=== PATIENT | male | born 1930 | race Caucasian/White ===

== ENCOUNTER → 2016-02-16 | Outpatient (CLI) | payer MEDICARE, OTHER | LOC: GMAM 12:01 | PROVIDERS: ATTEND Family Medicine | DX: N18.1 Chronic kidney disease, stage 1 (principal) ==

== ENCOUNTER → 2016-05-17 | Outpatient (CLI) | payer MEDICARE, OTHER | END | disposition home or self-care (01) | LOC: GMAM 11:26 | PROVIDERS: ATTEND Family Medicine | DX: N18.3 Chronic kidney disease, stage 3 (moderate) (principal) ==

== ENCOUNTER → 2016-06-14 | Outpatient (CLI) | payer MEDICARE, OTHER | END | disposition home or self-care (01) | LOC: GMAM 14:03 | PROVIDERS: ATTEND Family Medicine | DX: R05 Cough (principal) ==

== ENCOUNTER → 2016-07-19 | Outpatient (CLI) | payer MEDICARE, OTHER | END | disposition home or self-care (01) | LOC: GMAM 11:44 | PROVIDERS: ATTEND Family Medicine | DX: N18.3 Chronic kidney disease, stage 3 (moderate) (principal) ==

== ENCOUNTER → 2016-08-03 | Outpatient (CLI) | payer MEDICARE, OTHER | LOC: GMAM 14:28 | PROVIDERS: ATTEND Family Medicine | DX: M10.9 Gout, unspecified (principal) ==

== ENCOUNTER → 2016-08-19 | Outpatient (CLI) | payer MEDICARE, OTHER | LOC: LAB.O 11:06 | PROVIDERS: ATTEND Family Medicine | DX: I48.91 Unspecified atrial fibrillation (principal) ==

== ENCOUNTER → 2016-08-25 | Outpatient (CLI) | payer MEDICARE, OTHER | LOC: GMA 13:09 | PROVIDERS: ATTEND Nurse Practitioner Family | DX: R06.02 Shortness of breath (principal) ==

== ENCOUNTER 2016-10-02 20:59 | Emergency (ER) | payer MEDICARE, OTHER ==
[2016-10-02 21:13] VITALS: TEMP 98.2; O2SAT 96
[2016-10-02] MEDS ORDERED: LIDOCAINE 1% W/ EPINEPHRINE 20 ML VIAL INJ ONE ×2 (21:28→22:48)
--- NOTE | 2016-10-02 22:03 | ED.PDOC ---
History of Present Illness - General Chief Complaint: Laceration Stated Complaint: head laceration Time Seen by Provider: 10/02/16 21:54 Source: patient, family Exam Limitations: no limitations - History of Present Illness Initial Comments: Praful Lujan 85 y/o male stated his left knee gave way lost his balance and head hitting the drawer.No LOC ,remembers incident but noted bloodoozing back of his head brought by family here at [facility] ER.He is on custodial anticoagulation after heart valve replacement and INR recently was elevated today was given vit.K injection by his primary md.Had also skin laceration left hand. Occurred: this evening Severity: moderate Head Injury Location: occipital Method of Injury: fell Loss of Consciousness: no loss of consciousness Associated Symptoms: denies symptoms, other - scalp bleeding Allergies/Adverse Reactions: Allergies Celecoxib [From Celebrex] Allergy (Severe, Verified 10/02/16 21:13) Dextromethorphan [From Mucinex DM] Allergy (Severe, Verified 10/02/16 21:13) Guaifenesin [From Mucinex DM] Allergy (Severe, Verified 10/02/16 21:13) Ibuprofen [From Advil] Allergy (Severe, Verified 10/02/16 21:13) NSAIDs Allergy (Severe, Verified 10/02/16 21:13) PATIENT STATES ALL PAIN MEDS Penicillin G Allergy (Severe, Verified 10/02/16 21:13) Yellow Dye [From Mucinex DM] Allergy (Severe, Verified 10/02/16 21:13) Aspirin Allergy (Verified 10/02/16 21:13) Home Medications: Ambulatory Orders Amlodipine Besylate [Norvasc] 5 mg PO DAILY 05/16/12 Benazepril HCl 20 mg PO DAILY 05/16/12 Ezetimibe [Zetia] 10 mg PO DAILY 05/16/12 Metoprolol Succinate [Toprol Xl] 25 mg PO DAILY 05/16/12 Cefprozil Suspension [Cefzil] 500 mg PO BID #0 bttl 05/20/12 Furosemide [Lasix] 40 mg PO DAILY #0 tab 05/20/12 Levalbuterol HCl [Xopenex] 1.25 mg IN QID #0 ml 05/20/12 Nitroglycerin Patch 0.2 mg/Hr [Nitro-Dur] 0.2 mg TD DAILY #0 patch 05/20/12 PredniSONE (ER DISPENSE) 10 mg PO BID #0 tab 05/20/12 Review of Systems - Review of Systems Constitutional: States: no symptoms reported EENTM: States: no symptoms reported Respiratory: States: no symptoms reported Cardiology: States: no symptoms reported Gastrointestinal/Abdominal: States: no symptoms reported Genitourinary: States: no symptoms reported Skin: States: see HPI, other - laceration scalp Neurological: States: no symptoms reported Past Medical History (General) - Patient Medical History Hx Seizures: No Hx Stroke: No Hx Dementia: No Hx Asthma: No Hx of COPD: No Hx Cardiac Disorders: Yes Hx Congestive Heart Failure: Yes Hx Pacemaker: No Hx Hypertension: Yes Hx Thyroid Disease: No Hx Diabetes: No Hx Gastroesophageal Reflux: No Hx Renal Disease: No Hx Cancer: No Hx of HIV: No Hx Hepatitis C: No Hx MRSA: No Surgical History: appendectomy, other - heart valve replacement - Vaccination History Hx Tetanus, Diphtheria Vaccination: Yes Hx Influenza Vaccination: Yes Hx Pneumococcal Vaccination: Yes Immunizations Up to Date: Yes - Social History Hx Tobacco Use: No Hx Chewing Tobacco Use: No Hx Alcohol Use: No Hx Substance Use: No Hx Substance Use Treatment: No Hx Depression: No Feels Threatened In Home Enviroment: No Feels Threatened In a Relationship: No Hx Physical Abuse: No Hx Emotional Abuse: No Hx Suspected Abuse: No - Activities of Daily Living Patient Lives Alone: No - Grooming Ability: Independent Eating (Feeding) Ability: Independent Toileting Ability: Standby Assistance - Female History Patient : No Family Medical History - Family History Mother Family History: Unknown Living Status: Physical Exam - Physical Exam General Appearance: Alert, No apparent distress Head Injury: other - 3 cm scalp laceration parieto occipital area Eye Exam: bilateral normal ENT Exam: hearing grossly normal, no evidence of ENT injury, no dental injury Neck Exam: non-tender, full range of motion Cardiovascular/Respiratory: regular rate, rhythm, normal peripheral pulses, no respiratory distress Gastrointestinal/Abdominal: non tender, soft, no organomegaly Back Exam: no vertebral tenderness Extremity: non-tender, no calf tenderness 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, 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 Exam: normal hearing, normal speech Coordination/Gait: normal gait Motor/Sensory: no motor deficit, no sensory deficit - [place]enton Coma Score Best Eye Response (Denton): (4) open spontaneously Best Verbal Response (Verito): (5) oriented Best Motor Response ([place]enton): (6) obeys commands [place] Total: 15 Progress - Progress Progress: 10/02/16 22:07 Vital Signs - 8 hr 10/02/16 10/02/16 21:00 21:57 Temperature 98.2 F Pulse Rate [ 61 58 L monitor] Respiratory 22 Rate Blood Pressure 188/101 178/91 [Right Arm] O2 Sat by Pulse 96 Oximetry - Results/Orders Results/Orders: Talked to about tiny foreign body skin that nothing to worry about it it come out to the surface or be enveloped by fibrous tissue - EKG/XRAY/CT XRAY: hand - left no fracture foreign body CT Ordered: Yes - head-no intracranial abnormality Procedures - Laceration/Wound Repair Head Wound Length (cm): 3 - scalp laceration parieto -occiput area Wound's Depth, Shape: linear Wound Explored: clean Betadine Prep?: Yes Anesthesia: Lidocaine w/ Epi Volume Anesthetic (cc's): 8 Wound Repaired With: sutures Suture Size/Type: 3:0, prolene Number of Sutures: 4 Layer Closure?: No Sterile Dressing Applied?: Yes Left Hand Wound Length (cm): 3 - skin tear Wound's Depth, Shape: superficial Wound Explored: no foreign body removed Betadine Prep?: Yes Wound Repaired With: steri-strips Sterile Dressing Applied?: Yes Departure - Departure Clinical Impression: nursing home (current) use of anticoagulants, Skin tear Fall at home Qualifiers: Encounter type: initial encounter Qualified Code(s): W19.XXXA - Unspecified fall, initial encounter Laceration of occipital region of scalp Qualifiers: Encounter type: initial encounter Qualified Code(s): S01.01XA - Laceration without foreign body of scalp, initial encounter Time of Disposition: 22:39 Disposition: Discharge to Home or Self Care Condition: Fair Departure Forms: ED Discharge - Pt. Copy, Patient Portal Self Enrollment Instructions: DI for Laceration Repair of the Scalp Referrals: Song Lobo MD [Primary Care Provider] - 1-2 Weeks Home Medications: Ambulatory Orders Amlodipine Besylate [Norvasc] 5 mg PO DAILY 05/16/12 Benazepril HCl 20 mg PO DAILY 05/16/12 Ezetimibe [Zetia] 10 mg PO DAILY 05/16/12 Metoprolol Succinate [Toprol Xl] 25 mg PO DAILY 05/16/12 Cefprozil Suspension [Cefzil] 500 mg PO BID #0 bttl 05/20/12 Furosemide [Lasix] 40 mg PO DAILY #0 tab 05/20/12 Levalbuterol HCl [Xopenex] 1.25 mg IN QID #0 ml 05/20/12 Nitroglycerin Patch 0.2 mg/Hr [Nitro-Dur] 0.2 mg TD DAILY #0 patch 05/20/12 PredniSONE (ER DISPENSE) 10 mg PO BID #0 tab 05/20/12 Additional Instructions: REMOVAL OF SUTURES 10/08/2016 [facility] ER;RETURN TO EMERGENCY ROOM NEEDED
--- NOTE | 2016-10-02 22:11 | CT ---
PROCEDURE: Head HISTORY: head lac, on coumadin Indication: Same as above Comparison: 10/09/2013 Technique: CT of the head was done without intravenous contrast was done in the axial plane only This exam was performed according to our departmental dose-optimization program, which includes automated exposure control, adjustment of the mA and/or KV according to the patient's size and/or use of iterative reconstruction technique. FINDINGS: There is no intracranial hemorrhage, midline shift mass effect or acute focal infarct. There is prominence of the sylvian fissures and the cortical sulci reflecting age related volume loss. There is periventricular and deep white matter low attenuation, most likely related to small vessel white matter ischemic disease. Intracranial vascular calcifications are seen. If clinical concern exists regarding an acute ischemic/vascular pathology being responsible for patient's symptomatology, an MRI of the brain is more sensitive than the current study, in ruling out such a possibility. There is good rubio/white matter differentiation. The ventricular system is normal. The mastoid air cells are unremarkable . The paranasal sinuses are unremarkable . There is no visualization of acute fractures involving the calvarium or the skull base. IMPRESSION: There is no acute intracranial abnormality. Age related and chronic involutional changes are seen. Electronically signed by: Esvin Cooper MD 10/02/2016 10:10 PM CDT Workstation: [id number]
[2016-10-02 23:14] VITALS: BP 174/89
== END 2016-10-02 23:14 | disposition home or self-care (01) ==
LOC: ER 20:59
DX: S01.01XA Laceration without foreign body of scalp, initial encounter (principal); S61.412A Laceration without foreign body of left hand, initial encounter; Z95.2 Presence of prosthetic heart valve; Z88.0 Allergy status to penicillin; Z88.8 Allergy status to other drugs, medicaments and biological substances; Z79.01 Long term (current) use of anticoagulants; W19.XXXA Unspecified fall, initial encounter; W22.03XA Walked into furniture, initial encounter; Y92.9 Unspecified place or not applicable; I11.0 Hypertensive heart disease with heart failure; I50.9 Heart failure, unspecified

== ENCOUNTER 2016-12-22 12:20 | Emergency (ER) | payer MEDICARE, OTHER ==
[2016-12-22 12:37] VITALS: TEMP 97.8
--- NOTE | 2016-12-22 13:18 | ED.PDOC ---
History of Present Illness - General Chief Complaint: Trauma Stated Complaint: s/p fall Time Seen by Provider: 12/22/16 12:41 Source: patient, RN notes reviewed, Vital Signs reviewed, family - Exam Limitations: no limitations - History of Present Illness Initial Comments: Patient present to the ER after falling backwards in his walker-chair leaving the doctors office. He is having pain @ the back of his head and neck. Reports some mild back pain but otherwise denies injury. reports that neurologically he is acting like himself. He is on Warfarin daily. INR done today at PCP clinic just prior to arrival @ ER was 2.8. Timing/Duration: momentarily Severity: mild Improving Factors: rest Worsening Factors: movement Associated Symptoms: headaches, other - No LOC Allergies/Adverse Reactions: Allergies Celecoxib [From Celebrex] Allergy (Severe, Verified 10/02/16 21:13) Dextromethorphan [From Mucinex DM] Allergy (Severe, Verified 10/02/16 21:13) Guaifenesin [From Mucinex DM] Allergy (Severe, Verified 10/02/16 21:13) Ibuprofen [From Advil] Allergy (Severe, Verified 10/02/16 21:13) NSAIDs Allergy (Severe, Verified 10/02/16 21:13) PATIENT STATES ALL PAIN MEDS Penicillin G Allergy (Severe, Verified 10/02/16 21:13) Yellow Dye [From Mucinex DM] Allergy (Severe, Verified 10/02/16 21:13) Aspirin Allergy (Verified 10/02/16 21:13) Home Medications: Ambulatory Orders Amlodipine Besylate [Norvasc] 5 mg PO DAILY 05/16/12 Benazepril HCl 20 mg PO DAILY 05/16/12 Ezetimibe [Zetia] 10 mg PO DAILY 05/16/12 Metoprolol Succinate [Toprol Xl] 25 mg PO DAILY 05/16/12 Cefprozil Suspension [Cefzil] 500 mg PO BID #0 bttl 05/20/12 Furosemide [Lasix] 40 mg PO DAILY #0 tab 05/20/12 Levalbuterol HCl [Xopenex] 1.25 mg IN QID #0 ml 05/20/12 Nitroglycerin Patch 0.2 mg/Hr [Nitro-Dur] 0.2 mg TD DAILY #0 patch 05/20/12 PredniSONE (ER DISPENSE) 10 mg PO BID #0 tab 05/20/12 Warfarin Sodium [Coumadin] 6 mg PO 10/02/16 Review of Systems - Review of Systems Constitutional: States: no symptoms reported EENTM: States: see HPI. Denies: blurred vision, double vision, ear pain, throat pain, mouth pain, other - Hit back of head, bleeding Respiratory: States: no symptoms reported Cardiology: States: no symptoms reported Gastrointestinal/Abdominal: States: no symptoms reported Musculoskeletal: States: back pain, neck pain Skin: States: see HPI Neurological: States: headache. Denies: numbness, paresthesia, tingling, weakness All other Systems: No Change from Baseline Past Medical History (General) - Patient Medical History Hx Seizures: No Hx Stroke: No Hx Dementia: No Hx Asthma: No Hx of COPD: Yes Hx Cardiac Disorders: Yes - Atrial fib Hx Congestive Heart Failure: Yes Hx Pacemaker: No Hx Hypertension: Yes Hx Thyroid Disease: No Hx Diabetes: No Hx Gastroesophageal Reflux: No Hx Renal Disease: No Hx Cancer: No Hx of HIV: No Hx Hepatitis C: No Hx MRSA: No Surgical History: appendectomy, coronary bypass surgery - Vaccination History Hx Tetanus, Diphtheria Vaccination: Yes Hx Influenza Vaccination: Yes Hx Pneumococcal Vaccination: Yes - Social History Hx Tobacco Use: Yes Hx Chewing Tobacco Use: No Hx Alcohol Use: No Hx Substance Use: No Hx Substance Use Treatment: No Hx Depression: No Hx Physical Abuse: No Hx Emotional Abuse: No Hx Suspected Abuse: No - Female History Patient : No Family Medical History - Family History Mother Family History: Unknown Living Status: Physical Exam - Physical Exam General Appearance: Alert, Comfortable, No apparent distress, Well Developed, Well Groomed, Well Hydrated, Well Nourished Eye Exam: bilateral normal Ears, Nose, Throat: hearing grossly normal, normal ENT inspection, normal pharynx Neck: supple, normal inspection, tender midline - mild Respiratory: chest non-tender, no respiratory distress, no accessory muscle use Gastrointestinal/Abdominal: non tender, soft, no organomegaly, no pulsatile mass Back Exam: normal inspection, no vertebral tenderness Extremity: normal range of motion, non-tender, normal inspection 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, no motor/sensory deficits, alert, normal mood/affect, oriented x 3 Skin Exam: normal color, warm/dry, other - Abrasion, no active bleeding on back of head Comments: Vital Signs 12/22/16 12:32 Temperature 97.8 F Pulse Rate [ 55 L Left Brachial] Respiratory 20 Rate Blood Pressure 166/95 [Left Arm] O2 Sat by Pulse 94 L Oximetry Progress - EKG/XRAY/CT CT Ordered: Yes - Head/C-spine: no acute intracranial abnormalities, fracture per Rad Departure - Departure Clinical Impression: Fall on same level as cause of accidental injury, knockout man (current) use of anticoagulants Contusion of scalp Qualifiers: Encounter type: initial encounter Qualified Code(s): S00.03XA - Contusion of scalp, initial encounter Acute cervical myofascial strain Qualifiers: Encounter type: initial encounter Qualified Code(s): S16.1XXA - Strain of muscle, fascia and tendon at neck level, initial encounter Time of Disposition: 13:47 Disposition: Discharge to Home or Self Care Condition: Good Departure Forms: ED Discharge - Pt. Copy, Patient Portal Self Enrollment Instructions: DI for Contusion, DI for Cervical Muscle Strain Diet: resume usual diet Activity: increase activity as tolerated Referrals: Song Lobo MD [Primary Care Provider] - 1-2 Weeks Home Medications: Ambulatory Orders Amlodipine Besylate [Norvasc] 5 mg PO DAILY 05/16/12 Benazepril HCl 20 mg PO DAILY 05/16/12 Ezetimibe [Zetia] 10 mg PO DAILY 05/16/12 Metoprolol Succinate [Toprol Xl] 25 mg PO DAILY 05/16/12 Cefprozil Suspension [Cefzil] 500 mg PO BID #0 bttl 05/20/12 Furosemide [Lasix] 40 mg PO DAILY #0 tab 05/20/12 Levalbuterol HCl [Xopenex] 1.25 mg IN QID #0 ml 05/20/12 Nitroglycerin Patch 0.2 mg/Hr [Nitro-Dur] 0.2 mg TD DAILY #0 patch 05/20/12 PredniSONE (ER DISPENSE) 10 mg PO BID #0 tab 05/20/12 Warfarin Sodium [Coumadin] 6 mg PO 10/02/16
[2016-12-22] MEDS ORDERED: CHLORHEXIDINE GLUCONATE 4 % 15 ML UD TOP ONE (13:26)
--- NOTE | 2016-12-22 13:35 | CT ---
EXAM DESCRIPTION: Head CLINICAL HISTORY: fell, hit back of head, on Warfarin COMPARISON: September 24, 2016 TECHNIQUE: Noncontrast transaxial CT images of the head are obtained from base to vertex. This exam was performed according to our departmental dose-optimization program, which includes automated exposure control, adjustment of the mA and/or kV according to patient size and/or use of iterative reconstruction technique. FINDINGS: The midline structures are not displaced. Sulci are age-appropriate. There are areas of decreased attenuation in the periventricular white matter and the white matter of the centrum semiovale. There is no evidence of mass, mass-effect, hydrocephalus, or acute intracranial hemorrhage. No abnormal extra axial fluid collection is seen. Moderate calcifications of the intracranial carotid arteries are seen. Calcifications of the arterial vasculature of the scalp is also seen. Stable small calcification in the right mid cerebellum. Bone windows show no evidence of depressed skull fracture. The visualized paranasal sinuses are unremarkable. Small amount of fluid in the left inferior mastoid air cells are again seen. IMPRESSION: 1. Age-appropriate atrophy with evidence of old small vessel ischemic type changes seen. No interval change. 2. No acute abnormality is seen on noncontrast CT of the head. Electronically signed by: Nilay Chambers MD 12/22/2016 1:34 PM [employer]GER
--- NOTE | 2016-12-22 13:39 | CT ---
EXAM DESCRIPTION: CT Cervical Spine CLINICAL HISTORY: pain Pain after fall COMPARISON: None available. TECHNIQUE: Axial noncontast CT of the cervical spine with coronal and sagittal reformats. This exam was performed according to our departmental dose-optimization program, which includes automated exposure control, adjustment of the mA and/or kV according to patient size and/or use of iterative reconstruction technique. FINDINGS: Cervical vertebral bodies show normal height. Mild reversal the normal cervical lordosis at C3-4 is likely related to degenerative or positional changes. No CT evidence of acute fracture or post traumatic positional abnormality of the cervical spine is seen. There is severe disc space narrowing from C4 through C7 with moderate disc space narrowing C2-C4. Multilevel facet arthropathy is seen. There is evidence of at least left and possibly right C2-3 facet arthrodesis. There is at least mild spinal canal stenosis from C4 through C7 with multilevel bony foraminal encroachment from C3 through T1. The C1-2 relationship is maintained. Moderate carotid artery calcifications are seen. Calcified nodule in the left lung apex measuring 1.5 cm is seen. IMPRESSION: No CT evidence of acute fracture or post traumatic positional abnormality of the cervical spine is seen. Moderate to severe spondylitic changes and mild facet arthropathy of the cervical spine is seen. Electronically signed by: Nilay Chambers MD 12/22/2016 1:38 PM DANCE THERAPIST
[2016-12-22 13:59] VITALS: BP 166/81; O2SAT 93
== END 2016-12-22 13:59 | disposition home or self-care (01) ==
LOC: ER 12:20
DX: S00.03XA Contusion of scalp, initial encounter (principal); S16.1XXA Strain of muscle, fascia and tendon at neck level, initial encounter; I11.0 Hypertensive heart disease with heart failure; I50.9 Heart failure, unspecified; I48.91 Unspecified atrial fibrillation; J44.9 Chronic obstructive pulmonary disease, unspecified; Z87.891 Personal history of nicotine dependence; Z79.4 Long term (current) use of insulin; Z79.899 Other long term (current) drug therapy; Z88.0 Allergy status to penicillin; Z88.8 Allergy status to other drugs, medicaments and biological substances; W01.0XXA Fall on same level from slipping, tripping and stumbling without subsequent striking against object, initial encounter; Y92.531 Health care provider office as the place of occurrence of the external cause

== ENCOUNTER → 2017-01-03 | Outpatient (CLI) | payer MEDICARE, OTHER | LOC: GMAM 14:13 | PROVIDERS: ATTEND Family Medicine | DX: R31.21 Asymptomatic microscopic hematuria (principal); M54.5 Low back pain; Z79.01 Long term (current) use of anticoagulants ==

== ENCOUNTER → 2017-01-05 | Outpatient (CLI) | payer MEDICARE, OTHER ==
--- NOTE | 2017-01-06 22:36 | CT ---
EXAM DESCRIPTION: Abdoment/Pelvis w/o Contrast CLINICAL HISTORY: FLANK PAIN COMPARISON: None Available. TECHNIQUE: Contiguous axial images of the abdomen and pelvis were obtained followed by reconstruction images. This exam was performed according to our departmental dose-optimization program, which includes automated exposure control, adjustment of the mA and/or kV according to patient size and/or use of iterative reconstruction technique. FINDINGS: Exophytic lesions of the kidneys could be cysts. Detail is limited without contrast. The heart is mildly enlarged. There is a small left pleural effusion. There is colonic diverticulosis. The aorta is enlarged at 36 mm diameter. The liver, spleen, pancreas and kidneys are within normal limits. There is no hydronephrosis or renal stones. The gallbladder is unremarkable by CT criteria. Adrenal glands are within normal limits. . There is no free fluid in the abdomen or pelvis. There is no bowel obstruction. There is no stranding of the mesenteric fat to suggest an inflammatory response. IMPRESSION: Abdominal aortic aneurysm. Follow-up is recommended every 12 months. No acute abnormality. Electronically signed by: Sanju Becker 01/06/2017 10:34 PM [facility]
--- NOTE | 2017-01-06 22:42 | CT ---
EXAM DESCRIPTION: Lumbar Spine CLINICAL HISTORY: 86 years Male LOWER BACK PAIN COMPARISON: None. TECHNIQUE: Contiguous axial CT images obtained through the lumbar spine without IV contrast. Reformatted images obtained. This exam was performed according to our department optimization program which includes automated exposure control, adjustment of the mA and/or kv according to patient size and/or use of iterative reconstruction technique. FINDINGS: There is moderate indentation of the superior endplate of L1 consistent with acute compression fracture.There are fractures through syndesmophytes at the superior and inferior left lateral aspect of the L2 vertebral body as well. There is rightward subluxation of L3 on L4. There are multiple moderate bilateral lateral disc osteophyte complexes. Abdominal aortic aneurysm measures 36 mm. Follow-up is recommended every 12 months. There are bony degenerative changes. There is severe loss of height of the L2-3, L3-4, and L4-5 discs. No spondylolysis. There is grade 1 retrolisthesis of L3 on L4 and of L2 on L3. There are moderate anterior disc osteophyte complexes at multiple levels. No definite additional acute abnormality. IMPRESSION: Acute fractures of L2. Abdominal aortic aneurysm. Follow-up is recommended every 12 months. Electronically signed by: Sanju Becker 01/06/2017 10:41 PM ECHO VASCULAR TECHNOLOGIST
== END | disposition home or self-care (01) ==
LOC: CT 10:32
PROVIDERS: ATTEND Family Medicine
DX: Z79.01 Long term (current) use of anticoagulants (principal); M54.5 Low back pain

== ENCOUNTER → 2017-01-17 | Outpatient (CLI) | payer MEDICARE, OTHER | END | disposition home or self-care (01) | LOC: GMAM 12:08 | PROVIDERS: ATTEND Family Medicine | DX: N18.1 Chronic kidney disease, stage 1 (principal); Z12.5 Encounter for screening for malignant neoplasm of prostate | CPT/HCPCS: 83735; 83970; 84100; 84550; G0103 ==

== ENCOUNTER → 2017-03-14 | Outpatient (CLI) | payer MEDICARE, OTHER | LOC: GMAM 17:30 | PROVIDERS: ATTEND Family Medicine | DX: R53.81 Other malaise (principal) ==

== ENCOUNTER → 2017-03-16 | Outpatient (CLI) | payer MEDICARE, OTHER | LOC: RESP 11:37 | PROVIDERS: ATTEND Nuclear Medicine Nuclear Cardiology | DX: R00.1 Bradycardia, unspecified (principal) ==

== ENCOUNTER 2017-03-23 09:00 | Emergency (ER) | payer MEDICARE, OTHER ==
[2017-03-23 09:05] VITALS: TEMP 99.4
--- NOTE | 2017-03-23 10:15 | RAD ---
EXAM DESCRIPTION: Chest,1 View CLINICAL HISTORY: SOB COMPARISON: 21 March 2017 TECHNIQUE: AP portable chest FINDINGS: The patient is poststernotomy. Cardiomegaly is evident. Bibasilar interstitial lung disease is noted. Calcified lymph nodes are observed in the right axilla. IMPRESSION: Cardiomegaly is observed more pronounced than seen on the previous exam. Bibasilar interstitial lung disease is noted. Electronically signed by: Rex José MD 03/23/2017 10:14 AM [facility]
--- NOTE | 2017-03-23 11:06 | ED.PDOC ---
History of Present Illness - General Chief Complaint: Respiratory Problem Stated Complaint: Lethargic, low O2 sats Time Seen by Provider: 03/23/17 09:19 Source: patient, family Exam Limitations: no limitations Additional Information: THIS PATIENT COMES TO THE ED WITH SOB. HE HAS A HX OF KIDNEY INJURY, CH - History of Present Illness Initial Comments: SOB AND AMS NOTED LAST NIGHT. NOW HE IS BROUGHT BY AMBULANCE. O2 SATS WERE NOTED TO BE LOW EVEN WITH 4 - LTS PER NASAL CANULA. ON NON REBREATHER SATURATION AT 95%. Timing/Duration: 7-24 hours Severity: severe Possible Cause: occasional episodes Improving Factors: nothing Worsening Factors: nothing Respiratory Risk Factors: no cause identified Allergies/Adverse Reactions: Allergies Celecoxib [From Celebrex] Allergy (Severe, Verified 10/02/16 21:13) Dextromethorphan [From Mucinex DM] Allergy (Severe, Verified 10/02/16 21:13) Guaifenesin [From Mucinex DM] Allergy (Severe, Verified 10/02/16 21:13) Ibuprofen [From Advil] Allergy (Severe, Verified 10/02/16 21:13) NSAIDs Allergy (Severe, Verified 10/02/16 21:13) PATIENT STATES ALL PAIN MEDS Penicillin G Allergy (Severe, Verified 10/02/16 21:13) Yellow Dye [From Mucinex DM] Allergy (Severe, Verified 10/02/16 21:13) Aspirin Allergy (Verified 10/02/16 21:13) Home Medications: Ambulatory Orders Amlodipine Besylate [Norvasc] 5 mg PO DAILY 05/16/12 Benazepril HCl 20 mg PO DAILY 05/16/12 Ezetimibe [Zetia] 10 mg PO DAILY 05/16/12 Metoprolol Succinate [Toprol Xl] 25 mg PO DAILY 05/16/12 Cefprozil Suspension [Cefzil] 500 mg PO BID #0 bttl 05/20/12 Furosemide [Lasix] 40 mg PO DAILY #0 tab 05/20/12 Levalbuterol HCl [Xopenex] 1.25 mg IN QID #0 ml 05/20/12 Nitroglycerin Patch 0.2 mg/Hr [Nitro-Dur] 0.2 mg TD DAILY #0 patch 05/20/12 PredniSONE (ER DISPENSE) 10 mg PO BID #0 tab 04/15/13 Warfarin Sodium [Coumadin] 6 mg PO 10/02/16 Review of Systems - Review of Systems Constitutional: States: malaise, weakness EENTM: States: no symptoms reported Respiratory: States: orthopnea, short of breath Cardiology: States: no symptoms reported Gastrointestinal/Abdominal: States: no symptoms reported Genitourinary: States: no symptoms reported Musculoskeletal: States: no symptoms reported Skin: States: no symptoms reported Neurological: States: no symptoms reported Endocrine: States: no symptoms reported Hematologic/Lymphatic: States: no symptoms reported All other Systems: Reviewed and Negative Past Medical History (General) - Patient Medical History Hx Seizures: No Hx Stroke: No Hx Dementia: No Hx Asthma: No Hx of COPD: Yes Hx Cardiac Disorders: Yes - Atrial fib, CABG AND AORTIC VALVE REPLACEMENT Hx Congestive Heart Failure: Yes Hx Pacemaker: No Hx Hypertension: Yes Hx Thyroid Disease: No Hx Diabetes: No Hx Gastroesophageal Reflux: No Hx Renal Disease: No Hx Cancer: No Hx of HIV: No Hx Hepatitis C: No Hx MRSA: No - Vaccination History Hx Tetanus, Diphtheria Vaccination: Yes Hx Influenza Vaccination: Yes - 2017 Hx Pneumococcal Vaccination: Yes - Social History Hx Tobacco Use: Yes - Quit around 1966 Hx Chewing Tobacco Use: No Hx Alcohol Use: No Hx Substance Use: No Hx Substance Use Treatment: No Hx Depression: No Hx Physical Abuse: No Hx Emotional Abuse: No Hx Suspected Abuse: No - Female History Patient : No Family Medical History - Family History Mother Family History: Unknown Living Status: Physical Exam - Physical Exam General Appearance: Alert, Well Developed, Well Groomed Eyes, Ears, Nose, Throat Exam: PERRL/EOMI, normal ENT inspection, TMs normal, pharynx normal Neck: non-tender, full range of motion, supple, normal inspection Respiratory: chest non-tender, respiratory distress, decreased breath sounds, rhonchi Cardiovascular/Chest: normal peripheral pulses, regular rate, rhythm, other - 2 + EDEMA LOWER EXT. Peripheral Pulses: radial,right: 2+, radial,left: 2+ Gastrointestinal/Abdominal: normal bowel sounds, non tender, soft, no organomegaly, no pulsatile mass Rectal Exam: deferred Extremity: normal range of motion, non-tender, pedal edema - 2+ Neurologic: no motor/sensory deficits, alert, normal mood/affect, oriented x 3 Skin Exam: normal color Lymphatic: no adenopathy Progress - Results/Orders Results/Orders: ABG'S PH OF 7.36, PCO2 OFG 36, PO2 OF 47. D-DIMER OF 304, CREAT OF 4.21/BUN 65 , PT OF 29.8, INR OF 2.6 EKG: HR OF 87, QRS OF 140, QTC OF 531, AXES OF 27. IMPRESSION: SYNUS RYHTHM, THERE IS NON SPECIFIC ST DEPRESSION ON THE LATERAL PRECORDIAL LEADS SUGGESTIVE OF LATERAL WALL ISCHEMIA. CASE DISCUSSED WITH DR. DAVENPORT - WILL ACCEPT TRANSFER TO THE ED [facility] Departure - Departure Clinical Impression: Heart failure and kidney disease due to high blood pressure, Hypoxemia requiring supplemental oxygen Kidney injury Qualifiers: Encounter type: subsequent encounter Laterality: unspecified laterality Qualified Code(s): S37.009D - Unspecified injury of unspecified kidney, subsequent encounter Time of Disposition: Disposition: Transfer to Hospital Condition: Poor Departure Forms: ED Discharge - Pt. Copy, Patient Portal Self Enrollment Referrals: Song Lobo MD [Primary Care Provider] - 1-2 Weeks Home Medications: Ambulatory Orders Amlodipine Besylate [Norvasc] 5 mg PO DAILY 05/16/12 Benazepril HCl 20 mg PO DAILY 05/16/12 Ezetimibe [Zetia] 10 mg PO DAILY 05/16/12 Metoprolol Succinate [Toprol Xl] 25 mg PO DAILY 05/16/12 Cefprozil Suspension [Cefzil] 500 mg PO BID #0 bttl 05/20/12 Furosemide [Lasix] 40 mg PO DAILY #0 tab 05/20/12 Levalbuterol HCl [Xopenex] 1.25 mg IN QID #0 ml 05/20/12 Nitroglycerin Patch 0.2 mg/Hr [Nitro-Dur] 0.2 mg TD DAILY #0 patch 05/20/12 PredniSONE (ER DISPENSE) 10 mg PO BID #0 tab 05/20/12 Warfarin Sodium [Coumadin] 6 mg PO 10/02/16 Transfer to Outside Facility - Transfer Information Accepting Provider:: [facility] - DR. DAVENPORT Accepting Facility: [facility] Reason for Transfer: specialized care not available
[2017-03-23] MEDS ORDERED: FUROSEMIDE INJ 40 MG/4 ML VIAL IV ONE (11:08)
[2017-03-23] MEDS ORDERED: FUROSEMIDE INJ 40 MG/4 ML VIAL ONE (13:27)
[2017-03-23 14:40] VITALS: BP 126/72; O2SAT 95
== END 2017-03-23 13:25 | disposition short-term general hospital (02) ==
LOC: ER 09:00
DX: I13.0 Hypertensive heart and chronic kidney disease with heart failure and stage 1 through stage 4 chronic kidney disease, or unspecified chronic kidney disease (principal); N18.9 Chronic kidney disease, unspecified; I50.9 Heart failure, unspecified; I48.91 Unspecified atrial fibrillation; Z95.1 Presence of aortocoronary bypass graft; Z95.2 Presence of prosthetic heart valve; Z87.891 Personal history of nicotine dependence; Z79.01 Long term (current) use of anticoagulants; Z79.899 Other long term (current) drug therapy; Z87.828 Personal history of other (healed) physical injury and trauma
CPT/HCPCS: 36415; 36600; 71045; 80053; 82803; 82805; 83880; 85025; 85379; 85610; 85730; 93005; 94760; J1940

== ENCOUNTER → 2017-04-11 | Outpatient (CLI) | payer MEDICARE, OTHER | LOC: BFHH 14:59 | PROVIDERS: ATTEND Family Medicine | DX: D64.9 Anemia, unspecified (principal) ==

== ENCOUNTER → 2017-04-12 | Outpatient (CLI) | payer MEDICARE, OTHER | LOC: BFHH 12:58 | PROVIDERS: ATTEND Family Medicine | DX: D53.9 Nutritional anemia, unspecified (principal); D69.6 Thrombocytopenia, unspecified ==

== ENCOUNTER 2017-04-15 19:01 | Observation (INO) | payer MEDICARE, OTHER ==
[2017-04-15] MEDS ORDERED: FUROSEMIDE INJ 100 MG/10 ML VIAL IV ONE (19:33)
--- NOTE | 2017-04-15 19:37 | RAD ---
Chest single view on 04/15/2017 CLINICAL INDICATION: Shortness of breath COMPARISON: 03/23/2017 FINDINGS: The patient is status post median sternotomy and valve replacement. Right IJ catheter tip is at the cavoatrial junction. Cardiomegaly is noted. There is a small left and likely trace right pleural effusion. Increased interstitial changes may be chronic in nature versus mild edema. Vascular calcification is noted in the aorta. IMPRESSION: New right IJ catheter in place with otherwise no significant change in the appearance of the chest. Electronically signed by: Ryan Huggins 04/15/2017 7:36 PM CDT
[2017-04-15] MEDS ORDERED: FUROSEMIDE INJ 40 MG/4 ML VIAL ONE (19:40)
--- NOTE | 2017-04-15 20:52 | ED.PDOC ---
History of Present Illness - General Chief Complaint: Respiratory Problem Stated Complaint: SOB Recent Pneumonia Time Seen by Provider: 04/15/17 19:02 Source: family Exam Limitations: clinical condition - History of Present Illness Initial Comments: Patient presents with somnolence. He has CHF and Stage 4 renal failure, on dialysis for two weeks with last one being yesterday. He has become somnolent and tired after every dialysis treatment. Today was different in that it was worse than any previous episode. He had trouble keeping his NC on last night as he is on constant oxygen at 3 L, although he is only requiring 2.5 today. No other symptoms. Has not had respiratory distress. Timing/Duration: 24 hours Severity: moderate Improving Factors: nothing Worsening Factors: nothing Associated Symptoms: denies symptoms Allergies/Adverse Reactions: Allergies Celecoxib [From Celebrex] Allergy (Severe, Verified 04/15/17 19:23) Dextromethorphan [From Mucinex DM] Allergy (Severe, Verified 04/15/17 19:23) Guaifenesin [From Mucinex DM] Allergy (Severe, Verified 04/15/17 19:23) Ibuprofen [From Advil] Allergy (Severe, Verified 04/15/17 19:23) NSAIDs Allergy (Severe, Verified 04/15/17 19:23) PATIENT STATES ALL PAIN MEDS Penicillin G Allergy (Severe, Verified 04/15/17 19:23) Yellow Dye [From Mucinex DM] Allergy (Severe, Verified 04/15/17 19:23) Aspirin Allergy (Verified 04/15/17 19:23) Home Medications: Ambulatory Orders Amiodarone HCl 200 mg PO DAILY 03/23/17 Lubiprostone [Amitiza] 24 mcg PO BID 03/23/17 Metoprolol Tartrate [Lopressor] 50 mg PO BID 03/23/17 Tamsulosin [Flomax] 0.4 mg PO BEDTIME 03/23/17 Calcium 04/15/17 Clonidine HCl PRN 04/15/17 Fish Oil 04/15/17 Multiple Vitamins W/ Minerals [Multi For Him 50+] 1 tab PO 04/15/17 Review of Systems - Review of Systems Constitutional: States: see HPI EENTM: States: no symptoms reported Respiratory: States: see HPI Cardiology: States: no symptoms reported Gastrointestinal/Abdominal: States: no symptoms reported Genitourinary: States: see HPI Musculoskeletal: States: no symptoms reported Skin: States: no symptoms reported Neurological: States: no symptoms reported Endocrine: States: no symptoms reported Hematologic/Lymphatic: States: no symptoms reported Past Medical History (General) - Patient Medical History Hx Seizures: No Hx Stroke: No Hx Dementia: No Hx Asthma: No Hx of COPD: No Hx Cardiac Disorders: Yes - Bypass surgery Hx Congestive Heart Failure: Yes Hx Pacemaker: No Hx Hypertension: Yes Hx Thyroid Disease: No Hx Diabetes: No Hx Gastroesophageal Reflux: No Hx Renal Disease: Yes - Started Dialysis x 3 weeks ago Hx Cancer: No Hx of HIV: No Hx Hepatitis C: No Hx MRSA: No Surgical History: coronary bypass surgery - Vaccination History Hx Tetanus, Diphtheria Vaccination: Yes Hx Influenza Vaccination: Yes Hx Pneumococcal Vaccination: Yes - Social History Hx Tobacco Use: No Hx Chewing Tobacco Use: No Hx Alcohol Use: Yes Hx Substance Use: No Hx Substance Use Treatment: No Hx Depression: No Hx Physical Abuse: No Hx Emotional Abuse: No Hx Suspected Abuse: No - Female History Patient : No - Triage Comment ED Triage Comment: Presents to ED with [facility] from home--c/o SOB and recently had pneumonia right side. 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, no motor/sensory deficits, other - oriented to name and place, then goes back to sleep Skin Exam: normal color Progress - Progress Progress: 04/15/17 20:53 Laboratory Tests 04/15/17 04/15/17 04/15/17 18:35 18:35 18:35 WBC 5.0 RBC 2.54 L Hgb 8.8 L Hct 27.1 L MCV 106.9 H MCH 34.6 H MCHC 32.3 L RDW 18.4 H Plt Count 73 L MPV 10.6 H Absolute Neuts (auto) 3.20 Absolute Lymphs (auto) 1.10 Absolute Monos (auto) 0.70 Absolute Eos (auto) 0.10 Absolute Basos (auto) 0.00 Neutrophils % 62.7 Lymphocytes % 21.6 Monocytes % 13.9 H Eosinophils % 1.1 Basophils % 0.7 Normal RBC Morphology 1+hypochromia PT INR PTT (SP) pCO2 pO2 HCO3 ABG pH ABG O2 Saturation ABG Base Excess ABG Deoxyhemoglobin Oxyhemoglobin % Carboxyhemoglobin % Methemoglobin % Sat Calc Total Hemoglobin Sodium 141 Potassium 4.8 Chloride 100 L Carbon Dioxide 33 H Anion Gap 12.8 BUN 30 H Creatinine 3.61 H BUN/Creatinine Ratio 8.3 L Random Glucose 142 H Serum Osmolality 289.9 Calcium 8.9 Total Bilirubin 1.0 AST 240 H ALT 185 H Alkaline Phosphatase 153 H Creatine Kinase 44 CK-MB (CK-2) 1.2 CK-MB (CK-2) % Not Reportable Troponin I 0.07 H* B-Natriuretic Peptide 1340.0 H* Serum Total Protein 5.4 L Albumin 2.9 L Globulin 2.5 Albumin/Globulin Ratio 1.2 Urine Color Urine Appearance Urine pH Ur Specific [place] Urine Protein Urine Glucose (UA) Urine Ketones Urine Blood Urine Nitrite Urine Bilirubin Urine Urobilinogen Ur Leukocyte Esterase Urine RBC Urine WBC Ur Epithelial Cells Amorphous Sediment Urine Bacteria 04/15/17 04/15/17 04/15/17 18:35 20:20 20:30 WBC RBC Hgb Hct MCV MCH MCHC RDW Plt Count MPV Absolute Neuts (auto) Absolute Lymphs (auto) Absolute Monos (auto) Absolute Eos (auto) Absolute Basos (auto) Neutrophils % Lymphocytes % Monocytes % Eosinophils % Basophils % Normal RBC Morphology PT 14.3 H INR 1.270 PTT (SP) 29.3 pCO2 42 pO2 85 HCO3 32.9 ABG pH 7.510 H ABG O2 Saturation 99.4 H ABG Base Excess 9.2 ABG Deoxyhemoglobin 0.6 Oxyhemoglobin % 95.8 Carboxyhemoglobin % 1.7 H Methemoglobin % Sat 1.9 H Calc Total Hemoglobin 8.1 L Sodium Potassium Chloride Carbon Dioxide Anion Gap BUN Creatinine BUN/Creatinine Ratio Random Glucose Serum Osmolality Calcium Total Bilirubin AST ALT Alkaline Phosphatase Creatine Kinase CK-MB (CK-2) CK-MB (CK-2) % Troponin I B-Natriuretic Peptide Serum Total Protein Albumin Globulin Albumin/Globulin Ratio Urine Color Nita Urine Appearance Clear Urine pH 7.5 Ur Specific Lind[place] 1.020 Urine Protein >=300 H Urine Glucose (UA) Negative Urine Ketones Negative Urine Blood Trace-intact H Urine Nitrite Negative Urine Bilirubin Small H Urine Urobilinogen 1.0 Ur Leukocyte Esterase Negative Urine RBC 0-1 Urine WBC 1-3 Ur Epithelial Cells 1-3 Amorphous Sediment Trace Urine Bacteria Rare EKG showed 1st degree A-V block. No ST changes or T wave inversions. No LBBB. Patient received Lasix 100 mg IV x one with good urinary output. Admitted for observation. Departure - Departure Clinical Impression: Dialysis dementia Disposition: Admit Patient Condition: Good Departure Forms: ED Discharge - Pt. Copy, Patient Portal Self Enrollment Diet: other - as per hospitalist Activity: other - as per hospitalist Referrals: Song Lobo MD [Primary Care Provider] - 1-2 Weeks Home Medications: Ambulatory Orders Amiodarone HCl 200 mg PO DAILY 03/23/17 Lubiprostone [Amitiza] 24 mcg PO BID 03/23/17 Metoprolol Tartrate [Lopressor] 50 mg PO BID 03/23/17 Tamsulosin [Flomax] 0.4 mg PO BEDTIME 03/23/17 Calcium 04/15/17 Clonidine HCl PRN 04/15/17 Fish Oil 04/15/17 Multiple Vitamins W/ Minerals [Multi For Him 50+] 1 tab PO 04/15/17
[2017-04-15] MEDS ORDERED: SODIUM CHLORIDE 0.9% (FLUSH) 10 ML SYG IV PRN (21:38)
[2017-04-15] MEDS ORDERED: MAGNESIUM HYDROXIDE 30 ML UD PO PRN (21:38)
[2017-04-15] MEDS ORDERED: SODIUM CHLORIDE 0.45% 1000ML 1,000 ML IVS PRN (21:46)
[2017-04-15] MEDS ORDERED: IV SET AND CAP CHANGE INJ INJ SCH (22:00)
--- NOTE | 2017-04-15 22:08 | HP ---
CHIEF COMPLAINT: Difficult to wake up, very weak and unable to walk. HISTORY OF PRESENT ILLNESS: This 86-year-old, white male is placed in the hospital for observation from the Emergency Room. He comes in by ambulance and is unable to walk, very weak and poorly responsive with the family having a hard time waking him up. He has had about 2 to 3 weeks of ongoing hemodialysis through a catheter inserted at [facility] in [place] for chronic renal failure. It is of note that usually after the dialysis for the first day or so he is very difficult to arouse, having difficulty even eating because of marked weakness and drowsiness. He then gets a little bit better for the day prior to the next dialysis session. His last dialysis was yesterday here in [place]. No significant fever, chills. He is chronically short of breath and has had congestive heart failure in the past. No significant pedal edema noted. He feels "all dried out" after the dialysis treatments. Because of the patient's inability to care for himself, the patient will be observed tonight until hopefully feeling better in the morning. In the Emergency Room, he did receive a dose of furosemide for diuresis effect and did have a fair urine output noted initially in the Emergency Room. Because of the tenuous basis of his fluid balance, he is also going to be given a low dose of some half normal saline tonight to prevent further hypovolemic symptoms which may be present. His next dialysis is two days from now on Sunday. PAST MEDICAL HISTORY: 1. Chronic renal failure, currently started on hemodialysis via a subclavian catheter on the right about a month ago. 2. History of coronary artery disease with stents placed in 1998. 3. History of aortic stenosis with replacement of the valve with a prosthesis. 4. History of gastrointestinal bleeds. 5. Chronic low back pain, followed by Dr. Gomez. 6. History of carotid stenosis. 7. Chronic obstructive pulmonary disease after stopping smoking years ago. 8. History of congestive heart failure, undetermined etiology at this time, possibly systolic. PAST SURGICAL HISTORY: 1. Appendectomy. 2. Gallbladder surgery. 3. Hernia repair. 4. Coronary artery bypass grafting on 3 vessels. 5. Aortic stenosis replaced with a prosthesis. 6. Catheter shunt placement for hemodialysis. CURRENT MEDICATIONS: Please refer to list acquired by the nurse of verified home medications. ALLERGIES: ASPIRIN, NSAIDS, WHICH CAUSE BLEEDING. FAMILY HISTORY: Generally negative with family members usually living into their late 80s or 90s. 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 Tobacco use stopped about 65 years ago. REVIEW OF SYSTEMS: GENERAL: Some weight loss is noted in recent weeks. No fever or chills. HEENT: No hearing or visual disturbances. LUNGS: He does have some cough and some shortness of breath even at rest requiring oxygen at home via concentrator at 2 to 3 liters per minute. CARDIOVASCULAR: No significant chest pains recently or palpitations. GASTROINTESTINAL: Decreased appetite noted especially after dialysis. No nausea , but no emesis and no hematemesis or blood in the stools noted. GENITOURINARY: A small amount of urine is noted daily. EXTREMITIES: No significant edema. NEUROLOGIC: Generally weak all over with no focal neurological deficits. During the initial part of the exam, he was very sleepy and did not respond, but was able to awaken and was able to carry on a good, normal communication in response to questioning as the examination continued. PHYSICAL EXAMINATION: VITAL SIGNS: Afebrile. Blood pressure 156/92. Pulse 67. Pulse oximetry 94% on 3 liters. Weight stated at 95.3 kg, but not measured. GENERAL: The patient initially was quite obtunded and sleepy headed, difficult to arouse even for family members. He then slowly started to become more awake and alert and then was able to carry on a fairly normal conversation. He still remained extremely weak, unable to walk even though he has been walking at home. He usually eats at least one meal a day which is breakfast. He is drinking some protein supplements as well. HEENT: Unremarkable except he does have an eschar over the anterior chin of undetermined etiology that will require some ongoing wound treatment. NECK: Supple with no increased jugular venous distention. LUNGS: Diminished breath sounds, otherwise clear. CARDIOVASCULAR: Heart tones are somewhat distant, yet regular. ABDOMEN: Slightly tender in the periumbilical region. Otherwise, no organomegaly, masses or tenderness. EXTREMITIES: Fairly good muscle tone. No significant pedal edema. NEUROLOGIC: No focal neurological deficits are noted, but the patient is very weak, unable to get out of the bed to try to walk because of that weakness. He has had a history recently of increased weakness after the dialysis which has persisted and will be discussed the dialysis physician at their next opportunity. LABORATORY: Hemoglobin 8.8, white count 5,000. He has a macrocytic/ hyperchromic presentation on indices. Platelet count 73. INR 1.27. Blood gas shows pH 7.5, PO2 85, PCO2 42, bicarb 33. Chemistry shows sodium 141, potassium 4.8, chloride low at 100, CO2 elevated at 33. BUN 30, creatinine 3.6 , glucose 142, AST elevated at 240, ALT elevated at 185, alkaline phosphatase 153. Troponin is 0.07. Beta natriuretic peptide elevated at 1,340. Albumin 2.9. Urinalysis today shows proteinuria, trace of hematuria and some bilirubinuria. No cultures at this time. Chest x-ray is performed and shows persistent cardiomegaly with small left and possible small right pleural effusions with some interstitial chronic changes noted and a new catheter tip is noted in the cavoatrial junction on the right for hemodialysis access. ASSESSMENT: 1. 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 2. Chronic renal failure requiring hemodialysis for the last month. 3. History of congestive heart failure of undetermined type. 4. Chronic obstructive pulmonary disease, currently stable. 5. History of atherosclerotic cardiovascular disease with history of carotid stenosis. 6. Coronary artery disease with triple coronary artery bypass grafting in the past. 7. History of aortic stenosis with prosthesis surgery performed in [place] at the time of the bypass grafting. PLAN: The patient is placed in the hospital for stabilization tonight. He was unable to ambulate and required significant assistance in the Emergency Room and was unable to return home safely. He will be reevaluated in the morning. At that time, we hope to be able to communicate with Dr. Bishop regarding the ongoing hemodialysis with feedback regarding his altered level of consciousness post dialysis treatments. Special attention to avoid significant dehydration or over-hydration continues with working with the dialysis staff. Anticipate reevaluation and continued outpatient management tomorrow. The patient will have close followup with Dr. Bishop as well as Dr. Lobo in the clinic. We will endeavor to assist the family in understanding the nuances of hemodialysis to better understand the significance of the patient's current condition. #[id number] [facility]
[2017-04-15] MEDS: LEVALBUTEROL NEBS 1.25 MG/3 ML VIAL INH SCH (23:45)
[2017-04-16] MEDS ORDERED: OMEPRAZOLE CAP 20 MG CAP PO SCH (06:30)
[2017-04-16] MEDS: LEVALBUTEROL NEBS 1.25 MG/3 ML VIAL INH SCH ×2 (08:42→17:46)
[2017-04-16] MEDS ORDERED: AMIODARONE HCL 200 MG TAB PO SCH (09:00)
[2017-04-16] MEDS ORDERED: LEVOTHYROXINE SODIUM 0.025 MG TAB PO SCH (09:00)
[2017-04-16] MEDS: METOPROLOL TARTRATE 50 MG TAB PO SCH ×2 (09:39→17:18)
[2017-04-16 18:27] VITALS: BP 125/62; TEMP 97.9; O2SAT 91
[2017-04-16] MEDS ORDERED: TAMSULOSIN 0.4 MG CAP PO SCH (21:00)
== END 2017-04-16 19:10 | disposition home or self-care (01) ==
LOC: ER 19:01 → MS 22:07
PROVIDERS: ADMIT Emergency Medicine; ATTEND Nurse Practitioner Family
DX: R40.4 Transient alteration of awareness (principal); R53.1 Weakness; R26.2 Difficulty in walking, not elsewhere classified; I13.2 Hypertensive heart and chronic kidney disease with heart failure and with stage 5 chronic kidney disease, or end stage renal disease; N18.6 End stage renal disease; R80.9 Proteinuria, unspecified; I50.9 Heart failure, unspecified; J44.9 Chronic obstructive pulmonary disease, unspecified; I25.10 Atherosclerotic heart disease of native coronary artery without angina pectoris; I44.0 Atrioventricular block, first degree; Z99.2 Dependence on renal dialysis; Z95.828 Presence of other vascular implants and grafts; Z95.1 Presence of aortocoronary bypass graft; Z95.2 Presence of prosthetic heart valve; Z79.899 Other long term (current) drug therapy; Z88.6 Allergy status to analgesic agent; Z88.8 Allergy status to other drugs, medicaments and biological substances; Z87.891 Personal history of nicotine dependence
CPT/HCPCS: 36415 ×4; 36600; 71045; 80048; 80053; 81001; 82550; 82553; 82803; 82805; 83880; 84443; 84484 ×2; 85025 ×2; 85610; 85730; 93005; 94640 ×3; 94760 ×2; 96374; 99284; J1940; J7614 ×2; J7799

== ENCOUNTER → 2017-04-18 | Outpatient (CLI) | payer MEDICARE, OTHER | LOC: BFHH 14:28 | PROVIDERS: ATTEND Family Medicine | DX: N18.5 Chronic kidney disease, stage 5 (principal); D64.9 Anemia, unspecified ==

== ENCOUNTER → 2017-05-11 | Outpatient (CLI) | payer MEDICARE, OTHER | END | disposition home or self-care (01) | LOC: BFHH 14:19 | PROVIDERS: ATTEND Family Medicine | DX: E03.9 Hypothyroidism, unspecified (principal) ==

== ENCOUNTER → 2017-05-17 | Outpatient (CLI) | payer MEDICARE, OTHER | LOC: BFHH 12:39 | PROVIDERS: ATTEND Family Medicine | DX: R19.7 Diarrhea, unspecified (principal) ==

== ENCOUNTER → 2017-06-08 | Outpatient (CLI) | payer MEDICARE, OTHER | LOC: BFHH 11:08 | PROVIDERS: ATTEND Family Medicine | DX: N18.4 Chronic kidney disease, stage 4 (severe) (principal); I50.41 Acute combined systolic (congestive) and diastolic (congestive) heart failure; N18.6 End stage renal disease; M62.81 Muscle weakness (generalized); E03.9 Hypothyroidism, unspecified ==

== ENCOUNTER → 2017-06-14 | Outpatient (CLI) | payer MEDICARE, OTHER | LOC: GMAM 12:19 | PROVIDERS: ATTEND Family Medicine | DX: R19.7 Diarrhea, unspecified (principal) ==

== ENCOUNTER → 2017-08-06 | Outpatient (CLI) | payer MEDICARE, OTHER | LOC: GMAM 12:38 | PROVIDERS: ATTEND Family Medicine | DX: K62.5 Hemorrhage of anus and rectum (principal) ==

== ENCOUNTER → 2017-08-09 | Outpatient (CLI) | payer MEDICARE, OTHER | LOC: GMAM 17:28 | PROVIDERS: ATTEND Family Medicine | DX: D50.8 Other iron deficiency anemias (principal); K62.5 Hemorrhage of anus and rectum ==

== ENCOUNTER → 2017-08-15 | Outpatient (CLI) | payer MEDICARE, OTHER | LOC: LAB.O 15:12 | PROVIDERS: ATTEND Urology | DX: R97.20 Elevated prostate specific antigen [PSA] (principal); N40.1 Benign prostatic hyperplasia with lower urinary tract symptoms ==

== ENCOUNTER 2017-11-27 22:15 | Emergency (ER) | payer MEDICARE, OTHER ==
[2017-11-27] MEDS ORDERED: ONDANSETRON INJ 4 MG/2 ML VIAL ONE (22:32)
[2017-11-27] MEDS ORDERED: ONDANSETRON INJ 4 MG/2 ML VIAL IV ONE (22:41)
[2017-11-27 22:42] VITALS: TEMP 98
--- NOTE | 2017-11-27 22:42 | ED.PDOC ---
History of Present Illness - General Chief Complaint: Chest Pain/NE Stated Complaint: CHEST PAIN Time Seen by Provider: 11/27/17 22:28 Source: patient, family Exam Limitations: no limitations - History of Present Illness Initial Comments: 2 D GEN WEAKNESS. 4 HRS CHEST DISCOMFORT AND PALPITATIONS. 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 MAYBE HAS H/O SVT. STARTED DIALYSIS 6 MONTHS AGO. NOTE: PT HAS BEEN OFF OF AMIODARONE AND CLONIDINE FOR 6 MOS, THUS IS NOT AN INTERACTION WITH CARDIZEM. PT DOES NOT HAVE A TRUE NSAID ALLERGY. AFTER BEING ON MOTRIN FOR MONTHS, HE DEVELOPED A GI BLEED. HE HAS NOT BEEN ON CHRONIC NSAIDS RECENTLY, THUS I GAVE ASA 325 TONIGHT FOR CARDIAC. Timing/Duration: 4-6 hours Severity/Quality: pressure Location: substernal Chest Pain Radiation: no radiation Activities at Onset: none Prior Chest Pain/Cardiac Workup: other - CABG, AORTIC VALVE REPLACEMENT Improving Factors: nothing Worsening Factors: nothing Aspirin Treatment Today: provided by ED Associated Symptoms: fatigue, nausea/vomiting, shortness of breath, weakness Allergies/Adverse Reactions: Allergies Celecoxib [From Celebrex] Allergy (Severe, Verified 11/27/17 23:50) Dextromethorphan [From Mucinex DM] Allergy (Severe, Verified 11/27/17 23:50) Guaifenesin [From Mucinex DM] Allergy (Severe, Verified 11/27/17 23:50) Ibuprofen [From Advil] Allergy (Severe, Verified 11/27/17 23:50) NSAIDs Allergy (Severe, Verified 11/27/17 23:50) unable to take due to hx GI bleed Penicillin G Allergy (Severe, Verified 11/27/17 23:50) Yellow Dye [From Mucinex DM] Allergy (Severe, Verified 11/27/17 23:50) Aspirin Allergy (Verified 11/27/17 23:50) Home Medications: Ambulatory Orders Tamsulosin [Flomax] 0.4 mg PO BEDTIME 03/23/17 Multiple Vitamins W/ Minerals [Multi For Him 50+] 1 tab PO DAILY 04/15/17 Apixaban [Eliquis] 2.5 mg PO DAILY 11/27/17 Calcium 600 mg PO DAILY 11/27/17 Hydrocodone-Acetaminophen [Hydrocodone Bitartrate/AC 5-325 mg] 1 tab PO PRN Levothyroxine Sodium [Synthroid] 100 mcg PO DAILY 11/27/17 Megestrol Acetate [Megestrol Acetate] 40 mg PO DAILY 11/27/17 Pantoprazole Tablet [Protonix] 40 mg PO DAILY 11/27/17 Probiotic Product [Probiotic] 1 tab PO DAILY 11/27/17 Review of Systems - Review of Systems Constitutional: States: weakness. Denies: diaphoresis, fever EENTM: States: no symptoms reported Respiratory: States: short of breath - MILD. Denies: cough, wheezing Cardiology: States: chest pain, palpitations Gastrointestinal/Abdominal: States: nausea. Denies: abdominal pain Genitourinary: States: no symptoms reported Musculoskeletal: States: no symptoms reported Skin: States: no symptoms reported Neurological: States: no symptoms reported Endocrine: States: no symptoms reported Hematologic/Lymphatic: States: no symptoms reported All other Systems: Reviewed and Negative Past Medical History (General) - Patient Medical History Hx Seizures: No Hx Stroke: No Hx Dementia: No Hx Asthma: No Hx of COPD: No Hx Cardiac Disorders: Yes - Bypass surgery Hx Congestive Heart Failure: Yes Hx Pacemaker: No Hx Hypertension: Yes Hx Thyroid Disease: No Hx Diabetes: No Hx Gastroesophageal Reflux: No Hx Renal Disease: Yes - Started Dialysis x 3 weeks ago Hx Cancer: No Hx of HIV: No Hx Hepatitis C: No Hx MRSA: No - Vaccination History Hx Tetanus, Diphtheria Vaccination: Yes Hx Influenza Vaccination: Yes Hx Pneumococcal Vaccination: Yes - Social History Hx Tobacco Use: No Hx Chewing Tobacco Use: No Hx Alcohol Use: Yes Hx Substance Use: No Hx Substance Use Treatment: No Hx Depression: No Hx Physical Abuse: No Hx Emotional Abuse: No Hx Suspected Abuse: No - Female History Patient : No Family Medical History - Family History Mother Family History: Unknown Living Status: Physical Exam - Physical Exam General Appearance: Alert, Obvious distress Eyes, Ears, Nose, Throat Exam: PERRL/EOMI, normal ENT inspection Neck: non-tender, full range of motion, supple, normal inspection, other - NO BRUIT. Respiratory: chest non-tender, lungs clear, normal breath sounds, no respiratory distress, no accessory muscle use Cardiovascular/Chest: no JVD, no murmur, irregularly irregular Peripheral Pulses: radial,right: 2+, radial,left: 2+ Gastrointestinal/Abdominal: normal bowel sounds, non tender, soft, no organomegaly, no pulsatile mass Extremity: normal range of motion, non-tender, normal inspection, pedal edema - trace BLE EDEMA. Neurologic: no motor/sensory deficits, alert, normal mood/affect, oriented x 3 Skin Exam: normal color, warm/dry Lymphatic: no adenopathy Progress - Progress Progress: 11/27/17 23:48 CP RESOLVED WITH MORPHINE 2 MG IV X 1. SVT RESOLVED (CHEMICALLY CONVERTED) WITH CARDIZEM 25 MG IV X 1. EKG:RATE 90 BPM WITH A REGULAR ATRIAL RHYTHM BUT FROM AN ECTOPIC FOCI. 1ST TROP ELEVATED AT 0.13, THUS TRANSFERRING TO [facility] [email or web address] THERE IS NO NE PER EKG BUT CONCERN FOR ACS WITH THE ELEVATED TROP. BP DROPPED FROM 128/60 TO 98/55, THUS I AM STARTING GENTLE IVF AT 75 ML/HR. 11/28/17 00:12 I SPOKE WITH [facility] [[email or web address]] HOSPITALIST, THEN [employer] OPERATOR HELPER, DR. BRANTLEY (SP?). HE RECOMMENDED I TRANSFER ER TO ER TO ENSURE HE REMAINS STABLE UPON ARRIVAL TO [facility] [[email or web address]], THEN WILL GO TO CARDIAC FLOOR OR ICU. BALTAZAR, [facility] [[email or web address]] TRANSFER LINE COORDINATOR, SAID HE WOULD SPEAK TO THE ER TO ENSURE THEY ARE ACCEPTING AND THEN WILL CALL BACK WITH CONFIRMATION. [facility] [[email or web address]] ER NURSE CALLED BACK CONFIRMING ACCEPTANCE OF TRFR, DR. PAYNE. 11/28/17 00:22 BNP JUST CAME BACK, IS OVER 5,000. THUS NEWLY DIAGNOSED CHF. BP HAS INCREASED TO 110/62, AND GIVEN HE HAS CHF I HAVE DC'D THE IVF. 11/28/17 00:55 FLU NEG. TSH PENDING. CBC HGB 11.9. CMP CR ELEVATED (DIALYSIS). CXR RETROCARDIAC AIRSPACE OPACITY. VSS AND AFIB WITH RVR CONTROLLED, THUS SAFE FOR TRANSFER. THANK YOU, [facility] [[email or web address]] AND DR PAYNE, FOR ACCEPTING FURTHER CARE OF OUR MUTUAL PT! Departure - Departure Clinical Impression: Elevated troponin, History of aortic valve replacement, History of coronary artery bypass graft x 3, Generalized weakness CHF (congestive heart failure) Qualifiers: Heart failure type: unspecified Heart failure chronicity: acute Qualified Code( s): I50.9 - Heart failure, unspecified Chest pain Qualifiers: Chest pain type: precordial pain Qualified Code(s): R07.2 - Precordial pain Afib Qualifiers: Atrial fibrillation type: unspecified Qualified Code(s): I48.91 - Unspecified atrial fibrillation Anemia Qualifiers: Anemia type: unspecified type Qualified Code(s): D64.9 - Anemia, unspecified CRF (chronic renal failure) Qualifiers: Chronic kidney disease stage: stage 4 (severe) Qualified Code(s): N18.4 - Chronic kidney disease, stage 4 (severe) Nausea & vomiting Qualifiers: Vomiting type: unspecified Vomiting Intractability: non-intractable Qualified Code(s): R11.2 - Nausea with vomiting, unspecified Disposition: Transfer to Hospital Condition: Serious Departure Forms: ED Discharge - Pt. Copy, Patient Portal Self Enrollment Instructions: DI for Chest Pain Referrals: Song Lobo MD [Primary Care Provider] - 1-2 Weeks Home Medications: Ambulatory Orders Tamsulosin [Flomax] 0.4 mg PO BEDTIME 03/23/17 Multiple Vitamins W/ Minerals [Multi For Him 50+] 1 tab PO DAILY 04/15/17 Apixaban [Eliquis] 2.5 mg PO DAILY 11/27/17 Calcium 600 mg PO DAILY 11/27/17 Hydrocodone-Acetaminophen [Hydrocodone Bitartrate/AC 5-325 mg] 1 tab PO PRN Levothyroxine Sodium [Synthroid] 100 mcg PO DAILY 11/27/17 Megestrol Acetate [Megestrol Acetate] 40 mg PO DAILY 11/27/17 Pantoprazole Tablet [Protonix] 40 mg PO DAILY 11/27/17 Probiotic Product [Probiotic] 1 tab PO DAILY 11/27/17 Transfer to Outside Facility - Transfer Information Accepting Provider:: DR. PAYNE, ER Accepting Facility: [facility] [[email or web address]] Reason for Transfer: required specialist not available
[2017-11-27] MEDS ORDERED: MORPHINE SULFATE INJ 10 MG/ML VIAL IV ONE (22:47)
[2017-11-27] MEDS ORDERED: MORPHINE SULFATE INJ 10 MG/ML VIAL ONE (22:48)
--- NOTE | 2017-11-27 23:23 | RAD ---
EXAM: Single view chest. INDICATION: Chest pain. COMPARISON: Chest x-ray: 04/15/2017. FINDINGS: There is a retrocardiac airspace opacity. A left pleural effusion may be present. There is mild pulmonary vascular congestion. The heart is enlarged. There is no pneumothorax. There is no acute fracture. IMPRESSION: Pulmonary vascular congestion with a retrocardiac airspace opacity Electronically signed by: Kb Walden MD 11/27/2017 11:21 PM CDT Workstation: [id number]
[2017-11-27] MEDS ORDERED: ASPIRIN (CHEWABLE) 81 MG TAB PO ONE (23:33)
[2017-11-27] MEDS ORDERED: ASPIRIN (CHEWABLE) 81 MG TAB ONE (23:33)
[2017-11-28 00:46] VITALS: BP 115/64; O2SAT 97
== END 2017-11-28 00:49 | disposition short-term general hospital (02) ==
LOC: ER 22:15
DX: R07.9 Chest pain, unspecified (principal); I50.9 Heart failure, unspecified; I48.91 Unspecified atrial fibrillation; D64.9 Anemia, unspecified; N18.4 Chronic kidney disease, stage 4 (severe); I13.0 Hypertensive heart and chronic kidney disease with heart failure and stage 1 through stage 4 chronic kidney disease, or unspecified chronic kidney disease; R79.89 Other specified abnormal findings of blood chemistry; R11.2 Nausea with vomiting, unspecified; Z95.1 Presence of aortocoronary bypass graft; Z95.2 Presence of prosthetic heart valve; Z99.2 Dependence on renal dialysis; Z79.899 Other long term (current) drug therapy; Z88.6 Allergy status to analgesic agent; Z88.8 Allergy status to other drugs, medicaments and biological substances; Z88.0 Allergy status to penicillin
CPT/HCPCS: 36415; 71045; 80048; 80076; 82550; 82553; 83880; 84443; 84484; 85025; 85610; 85730; 87804; 93005; J2270; J2405